=== PATIENT | male | born 2000 | race Caucasian/White ===

== ENCOUNTER 2021-05-11 03:52 | Observation (INO) ==
[2021-05-11] MEDS ORDERED: Tdap (Boostrix) Vaccine 0.5 ML SYRINGE IM ONE (04:06)
[2021-05-11 04:45] LABS: Basophils # 0.1 K/mcL (0.0-0.2); Basophils % 0.8 %; Eosinophils # 0.1 K/mcL (0.0-0.6); Eosinophils % 1.1 %; Hematocrit 41.6 % (37.5-50.1); Hemoglobin 14.1 g/dL (12.9-16.9); Immature Granulocytes % 0.1 % (0-4); Lymphocytes # 3.1 K/mcL (0.6-4.6); Lymphocytes % 44.1 %; Mean Corpuscular HGB Conc 33.9 g/dL (31.6-35.5); Mean Corpuscular Hemoglobin 31.9 pg (28.0-33.3); Mean Corpuscular Volume 94.1 fL (83.0-100.0); Mean Platelet Volume 10.7 fL (9.4-12.4); Monocytes # 0.5 K/mcL (0.0-1.3); Monocytes % 6.8 %; Neutrophils # 3.3 K/mcL (1.6-8.9); Platelet Count 186 K/mcL (140-400); Red Blood Count 4.42 M/mcL (4.19-5.50); Red Cell Distribution Width 11.9 % (11.5-14.5); Segmented Neutrophils % 47.1 %; White Blood Count 7.1 K/mcL (4.3-11.1)
[2021-05-11 04:53] LABS: Amphetamine Screen,Urine Negative ng/mL (Cutoff=1000); Barbiturate Screen,Urine Negative ng/mL (Cutoff=200); Benzodiazepines Screen,Urine Negative ng/mL (Cutoff=200); Cannabinoid Screen,Urine Positive ng/mL (Cutoff = 50); Cocaine Screen,Urine Negative ng/mL (Cutoff= 300); Opiate Screen,Urine Negative ng/mL (Cutoff=300); Phencyclidine Screen,Urine Negative ng/mL (Cutoff=25)
[2021-05-11 04:55] LABS: Bilirubin,Urine Negative (Negative); Blood,Urine Negative (Negative); Clarity,Urine Clear (Clear); Color,Urine Colorless (Yellow); Glucose,Urine (UA) Normal (Normal); Ketones,Urine Negative (Negative); Leukocyte Esterase,Urine Negative (Negative); Nitrite,Urine Negative (Negative); Protein,Urine Negative (Neg-Trace); Specific Gravity,Urine 1.007 (1.010-1.025); Urobilinogen,Urine Normal (Normal)
[2021-05-11 05:01] LABS: Acetaminophen < 10 mcg/mL (10-20); Alanine Aminotransferase 18 Units/L (7-52); Alkaline Phosphatase 46 Units/L (34-104); Aspartate Amino Transferase 23 Units/L (13-39); BUN/Creatinine Ratio 11 (6-26); Bilirubin,Direct 0.1 mg/dL (0.0-0.2); Bilirubin,Indirect 0.3 mg/dL (0.0-1.0); Bilirubin,Total 0.4 mg/dL (0.3-1.0); Blood Urea Nitrogen 11 mg/dL (6-20); Calcium 9.6 mg/dL (8.6-10.3); Carbon Dioxide 29 mEq/L (23-29); Chloride 101 mEq/L (98-107); Ethanol 140 mg/dL (Less than 10); Globulin 2.5 g/dL (2.4-3.5); Glucose 110 mg/dL (70-105); Osmolality,Calculated 288 (280-300); Potassium 3.3 mEq/L (3.5-5.1); Salicylate < 2.5 mg/dL (15.0-30.0); Sodium 139 mEq/L (136-145); Total Protein 7.5 g/dL (6.4-8.9); eGFR For African Americans > 60 (> 60); eGFR For Non-African Americans > 60 (> 60)
[2021-05-11 13:48] LABS: Influenza A PCR Negative (Negative); Influenza B PCR Negative (Negative); Resp. Syncytial Virus PCR Negative (Negative)
[2021-05-11 14:01] LABS: SARS-CoV-2 by PCR (In House) Negative (Negative)
[2021-05-11] MEDS ORDERED: hydrOXYzine pamoate 25 MG CAPSULE PO PRN (16:42)
[2021-05-11] MEDS ORDERED: haloperidoL 5 MG TABLET PO PRN (16:42)
[2021-05-11] MEDS ORDERED: Haloperidol Lactate 5 MG/ML VIAL IM PRN (16:42)
[2021-05-11] MEDS ORDERED: Acetaminophen 325 MG TABLET PO PRN (16:42)
[2021-05-11] MEDS ORDERED: *HR* LORazepam 2 MG/ML VIAL IM PRN (16:42)
[2021-05-11] MEDS ORDERED: *HR* LORazepam 1 MG TABLET PO PRN (16:42)
[2021-05-11] MEDS ORDERED: traZODone 50 MG TABLET PO PRN (16:42)
[2021-05-11] MEDS ORDERED: Mag Hydrox/Al Hydrox/Simeth 30 ML UDC PO PRN (19:31)
[2021-05-11] MEDS ORDERED: MOM Conc 10 ML UD.LIQ PO PRN (19:31)
[2021-05-11] MEDS ORDERED: Ibuprofen 600 MG TABLET PO PRN (20:33)
[2021-05-11] MEDS ORDERED: Nicotine 2 MG GUM BC PRN (21:05)
[2021-05-12 12:56] VITALS: BP 130/78; PULSE 50; TEMP 97.8; O2SAT 100
== END 2021-05-12 17:10 | disposition home or self-care (01) ==
LOC: EMEROOARM 03:52 → INTOOBSV 16:38 → 1ANU 16:38
PROVIDERS: ADMIT Psychiatry & Neurology Psychiatry; ATTEND Psychiatry & Neurology Psychiatry